=== PATIENT | male | born 1950 | race African-American/Black ===

== ENCOUNTER 2016-10-07 08:26 | Emergency (ER) | payer MEDICARE, MEDICAID ==
[~2016-10-07] VITALS: Ht 175.3 cm; Wt 80.0 kg
[~2016-10-07 08:26] MED LIST: BENZ2TAB7 PO; DIVA500T PO; DOCU-150 PO; FERR-43 PO; LEVO175T7 PO; LITH300T19 PO; QUET200T PO; RISP4 PO; SERT-112 PO; SULI200T4 PO; TOPI-60 PO
[2016-10-07 09:16] LABS: BASOPHILS % 0.3 % (0.0-2.0); DIFFERENTIAL COMMENT 0; EOSINOPHILS % 1.1 % (0.0-5.0); HEMOGLOBIN. 12.3 g/dL (14.0-18.0); LYMPHOCYTES % 24.8 % (20.0-50.0); MEAN CORPUSCULAR HEMOGLOBIN 33.6 pg (28.0-32.0); MEAN CORPUSCULAR HGB CONC 33.2 g/dL (31.0-37.0); MEAN CORPUSCULAR VOLUME 101.3 fL (80.0-94.0); MEAN PLATELET VOLUME 8.8 fl (7.4-10.4); MONOCYTES % 10.2 % (2.0-8.0); NEUTROPHILS % 63.6 % (40.0-76.0); PLATELET 97 x1000/uL (130-400); RED BLOOD CELL COUNT 3.65 mill/uL (4.7-6.1); RED CELL DISTRIBUTION WIDTH 13.7 % (11.6-14.6); WHITE BLOOD COUNT 7.1 x1000/uL (4.5-11.0)
[2016-10-07 09:20] LABS: INR 1.1; PROTHROMBIN TIME 11.3 sec
[2016-10-07 09:29] LABS: ANION GAP 11; CARBON DIOXIDE 29 mEq/L (21-32); CHLORIDE 105 mEq/L (98-107); INDEX HEMOLYSI 1 (1-3); INDEX ICTERIC 1 (1-4); INDEX LIPEMIC 1 (1-3); NT PRO B-TYPE NATRIURETIC PEP 85 pg/mL (5-125); TROPONIN I < 0.02 ng/mL (0.00-0.04); UREA NITROGEN BLOOD 14 mg/dL (7-21); eGFR > 60 mL/min (>60)
[2016-10-07 10:50] LABS: *AMPHETAMINES SCREEN URINE NEGATIVE (NEGATIVE); *BARBITURATES SCREEN URINE NEGATIVE (NEGATIVE); *BENZODIAZEPINES SCREEN URINE NEGATIVE (NEGATIVE); *COCAINE SCREEN URINE NEGATIVE (NEGATIVE); CANNABINOID URINE SCREEN NEGATIVE (NEGATIVE); ECSTASY MDMA SCREEN URINE NEGATIVE (NEGATIVE); METHADONE URINE SCREEN NEGATIVE (NEGATIVE); OPIATES URINE SCREEN NEGATIVE (NEGATIVE); PHENCYCLIDINE URINE SCREEN NEGATIVE (NEGATIVE)
[2016-10-07 11:05] VITALS: BP 148/86
== END 2016-10-07 11:59 | disposition home or self-care (01) ==
LOC: ER 08:38
DX: R55 Syncope and collapse (principal); R56.9 Unspecified convulsions; F20.9 Schizophrenia, unspecified; F31.9 Bipolar disorder, unspecified; Z79.899 Other long term (current) drug therapy; Z88.8 Allergy status to other drugs, medicaments and biological substances; W01.0XXA Fall on same level from slipping, tripping and stumbling without subsequent striking against object, initial encounter; Y93.89 Activity, other specified; Y99.8 Other external cause status; Y92.89 Other specified places as the place of occurrence of the external cause
CPT/HCPCS: 36415; 71010; 80048; 80165; 80178; 80305; 83880; 84484; 85025; 85610; 93005; 99285

== ENCOUNTER 2018-05-17 12:48 | Emergency (ER) | payer MEDICARE, MEDICAID ==
[~2018-05-17] VITALS: Ht 170.2 cm; Wt 77.0 kg
[~2018-05-17 12:48] MED LIST changes: +DIVA-75 PO; -DIVA500T PO; -LITH300T19 PO; +LITHBID PO; -TOPI-60 PO; +TOPI25TA48 PO
[2018-05-17] MEDS ORDERED: TETANUS, DIPHTHERIA, PERTUSSIS VAC/PF 0.5ML (>7YR OLD) IM ONE (13:45)
[2018-05-17] MEDS ORDERED: LIDOCAINE/EPINEPHR/TETRACAINE 3ML TP ONE (13:45)
[2018-05-17] MEDS ORDERED: LIDOCAINE 1%/EPI 1:100,000 10 ML VIAL IJ ONE (13:45)
[2018-05-17] MEDS ORDERED: BACITRACIN ZINC OINT UDPKT TOP ONE (13:45)
[2018-05-17 16:00] VITALS: BP 142/76
== END 2018-05-17 16:23 | disposition home or self-care (01) ==
LOC: ER 12:48
DX: S01.81XA Laceration without foreign body of other part of head, initial encounter (principal); W01.0XXA Fall on same level from slipping, tripping and stumbling without subsequent striking against object, initial encounter; Y93.89 Activity, other specified; Y92.89 Other specified places as the place of occurrence of the external cause; Y99.8 Other external cause status
CPT/HCPCS: 12001; 70450; 70486; 90471; 90715; 99284; J3490; 12011

== ENCOUNTER → 2019-02-28 | Outpatient (CLI) | payer MEDICARE, MEDICAID ==
[~2019-02-28] MED LIST changes: +DIVA500T3 PO; +LORA0.5T2 PO
== END | disposition home or self-care (01) ==
LOC: CARD 09:02
PROVIDERS: ATTEND Internal Medicine
DX: G40.919 Epilepsy, unspecified, intractable, without status epilepticus (principal)

== ENCOUNTER 2019-03-31 18:22 | Emergency (ER) | payer MEDICARE, MEDICAID ==
[~2019-03-31] VITALS: Ht 170.2 cm; Wt 75.0 kg
[~2019-03-31 18:22] MED LIST changes: -DIVA-75 PO; -QUET200T PO; -RISP4 PO
[2019-03-31] MEDS ORDERED: LORAZEPAM 1MG TABLET PO ONE (21:30)
[2019-03-31 22:43] VITALS: BP 139/64
[2019-03-31] MEDS ORDERED: DIPHENHYDRAMINE 25MG CAPSULE PO ONE (22:45)
[2019-03-31] MEDS ORDERED: IBUPROFEN 600MG TABLET PO ONE (22:45)
== END 2019-03-31 23:47 | disposition home or self-care (01) ==
LOC: ER 18:22
DX: M19.90 Unspecified osteoarthritis, unspecified site (principal); L30.9 Dermatitis, unspecified; F03.90 Unspecified dementia, unspecified severity, without behavioral disturbance, psychotic disturbance, mood disturbance, and anxiety; Z79.899 Other long term (current) drug therapy; Z88.8 Allergy status to other drugs, medicaments and biological substances; Z88.4 Allergy status to anesthetic agent
CPT/HCPCS: 99283

== ENCOUNTER 2019-04-09 01:47 | Inpatient (IN) | payer MEDICARE, MEDICAID ==
[~2019-04-09] VITALS: Ht 167.6 cm; Wt 78.0 kg
[2019-04-09] MEDS: IPRATROPIUM/ALBUTEROL 0.5-3(2.5)MG/3ML NEB HHN SCH (01:28)
[2019-04-09] MEDS ORDERED: LORAZEPAM 0.5MG TABLET PO ONE (04:00)
[2019-04-09] MEDS ORDERED: ACETAMINOPHEN 325MG TABLET PO ONE (04:00)
[2019-04-09] MEDS ORDERED: SODIUM CHLORIDE 0.9% 1,000 ML IV ONE (04:04)
[2019-04-09] MEDS ORDERED: PIPERACILLIN/TAZOBACTAM 3.375GM/50ML PREMIX IV SCH (04:15)
[2019-04-09] MEDS ORDERED: KETOROLAC 15MG/ML VIAL IV ONE (04:15)
[2019-04-09] MEDS ORDERED: VANCOMYCIN 1 G PREMIX 200 ML IV SCH (04:15)
[2019-04-09] MEDS ORDERED: TETANUS, DIPHTHERIA, PERTUSSIS VAC/PF 0.5ML (>7YR OLD) IM ONE (04:30)
[2019-04-09 04:34] LABS: BASOPHILS % 0.5 % (0.0-2.0); EOSINOPHILS % 3.5 % (0.0-5.0); HEMATOCRIT. 37.6 % (42.0-52.0); HEMOGLOBIN. 12.6 g/dL (14.0-18.0); LYMPHOCYTES % 27.1 % (20.0-50.0); MEAN CORPUSCULAR HEMOGLOBIN 31.4 pg (28.0-32.0); MEAN CORPUSCULAR VOLUME 94.1 fL (80.0-94.0); MEAN PLATELET VOLUME 8.1 fl (7.4-10.4); MONOCYTES % 10.2 % (2.0-8.0); NEUTROPHILS % 58.7 % (40.0-76.0); PLATELET 203 x1000/uL (130-400); RED CELL DISTRIBUTION WIDTH 14.9 % (11.6-14.6)
[2019-04-09 04:39] LABS: CHLORIDE 112 mEq/L (98-107)
[2019-04-09 08:00] VITALS: BP 150/64
[2019-04-09 08:30] VITALS: BP 150/64
[2019-04-09] MEDS ORDERED: HALOPERIDOL LACTATE 5MG/ML VIAL IM PRN (09:45)
[2019-04-09] MEDS ORDERED: LORAZEPAM 2MG/ML CPJ IV PRN (09:45)
[2019-04-09 12:00] VITALS: BP 174/78
[2019-04-09] MEDS ORDERED: HYDR12.529 MT (13:08)
[2019-04-09] MEDS ORDERED: IPRA3AMP9 NEB (13:08)
[2019-04-09] MEDS ORDERED: RISP2TAB22 MT (13:08)
[2019-04-09] MEDS ORDERED: TAMS-11 MT (13:08)
[2019-04-09] MEDS ORDERED: DOXY100C2 MT (13:08)
[2019-04-09] MEDS ORDERED: GABA-529 MT (13:08)
[2019-04-09] MEDS ORDERED: ECON1POW MC (13:08)
[2019-04-09] MEDS ORDERED: AMOX-494 MT (13:08)
[2019-04-09] MEDS ORDERED: CHOL200010 MT (13:08)
[2019-04-09] MEDS ORDERED: PROM50VI IJ (13:08)
[2019-04-09] MEDS ORDERED: QUET400T11 MT (13:08)
[2019-04-09] MEDS ORDERED: LORA1TAB MT (13:08)
[2019-04-09] MEDS ORDERED: MELO-106 MT (13:08)
[2019-04-09 16:00] VITALS: BP 126/69
[2019-04-09] MEDS ORDERED: IPRATROPIUM/ALBUTEROL 0.5-3(2.5)MG/3ML NEB HHN PRN ×2 (16:15→17:15)
[2019-04-09] MEDS ORDERED: CLONIDINE 0.1MG TABLET PO PRN (17:15)
[2019-04-09] MEDS ORDERED: DIPHENHYDRAMINE 50MG/ML VIAL IV PRN (17:15)
[2019-04-09] MEDS ORDERED: ONDANSETRON HCL 4MG/2ML INJ IV PRN (17:15)
[2019-04-09] MEDS ORDERED: MAGNESIUM/ALUMINUM HYDROXIDE/SIMETHICONE 30ML UDC PO PRN (17:15)
[2019-04-09] MEDS ORDERED: GUAIFENESIN 200MG/10ML SUGAR FREE UDC PO PRN (17:15)
[2019-04-09] MEDS ORDERED: TETRACYCLINE HCL 250MG CAPSULE PO SCH (18:00)
[2019-04-09] MEDS ORDERED: ENOXAPARIN 40MG/0.4ML SYR SUBCUT SCH (20:00)
[2019-04-09] MEDS ORDERED: FLUCONAZOLE 400MG/200ML BAG 200 ML IV SCH (20:00)
[2019-04-09] MEDS ORDERED: PROMETHAZINE/DEXTROMETHORPHAN 6.25-15MG/5ML BOTTLE 120ML PO PRN (20:30)
[2019-04-09] MEDS: ACETAMINOPHEN 325MG TABLET PO PRN (20:44)
[2019-04-09] MEDS: GUAIFENESIN 600MG ER TABLET PO SCH (20:45)
[2019-04-09] MEDS: DIVALPROEX SODIUM 250MG DR TABLET PO SCH (20:45)
[2019-04-09] MEDS: CLOTRIMAZOLE/BETAMETHASONE 1/0.05% CREAM 15GM TOP SCH (20:46)
[2019-04-09] MEDS ORDERED: RISPERIDONE 1MG TABLET PO SCH (21:00)
[2019-04-09 21:14] VITALS: BP 128/57
[2019-04-09] MEDS: SODIUM CHLORIDE 0.9% INJ 3ML FLUSH IVF SCH (22:35)
[2019-04-09] MEDS: GABAPENTIN 100MG CAPSULE PO SCH (22:36)
[2019-04-09] MEDS: LORAZEPAM 1MG TABLET PO PRN (22:36)
[2019-04-10] VITALS: BP 120/58
[2019-04-10] MEDS: ACETAMINOPHEN 325MG TABLET PO PRN (02:20)
[2019-04-10 04:00] VITALS: BP 143/65
[2019-04-10] MEDS: SODIUM CHLORIDE 0.9% INJ 3ML FLUSH IVF SCH ×2 (06:30→14:00)
[2019-04-10] MEDS: GABAPENTIN 100MG CAPSULE PO SCH ×2 (06:30→14:30)
[2019-04-10] MEDS ORDERED: LEVOTHYROXINE SODIUM 75MCG TABLET PO SCH (07:20)
[2019-04-10 08:00] VITALS: BP 140/62
[2019-04-10] MEDS: GUAIFENESIN 600MG ER TABLET PO SCH (08:38)
[2019-04-10] MEDS: DIVALPROEX SODIUM 250MG DR TABLET PO SCH (08:38)
[2019-04-10] MEDS: CLOTRIMAZOLE/BETAMETHASONE 1/0.05% CREAM 15GM TOP SCH (08:39)
[2019-04-10] MEDS ORDERED: TOPIRAMATE 25MG TABLET PO SCH (09:00)
[2019-04-10] MEDS ORDERED: TAMSULOSIN HCL 0.4MG SR CAPSULE PO SCH (09:00)
[2019-04-10] MEDS ORDERED: LITHIUM CARBONATE 150 MG CAPSULE PO SCH (09:00)
[2019-04-10] MEDS: IPRATROPIUM/ALBUTEROL 0.5-3(2.5)MG/3ML NEB HHN SCH ×2 (10:24→17:17)
[2019-04-10] MEDS ORDERED: FLUCONAZOLE 400MG/200ML PREMIX IV SCH (11:00)
[2019-04-10 12:00] VITALS: BP 140/64
[2019-04-10] MEDS: LORAZEPAM 1MG TABLET PO PRN (12:08)
[2019-04-10 18:26] VITALS: BP 140/64
== END 2019-04-10 20:48 | disposition home or self-care (01) | DRG 383 ==
LOC: ER 01:47 → EDBEDREQ 05:22 → EDBEDREQTM 05:22 → EDBEDREQ 05:29 → ENRESERV 07:08 → 6EST 08:35
PROVIDERS: ADMIT Internal Medicine; ATTEND Internal Medicine
DX: L03.312 Cellulitis of back [any part except buttock and flank] (principal); F03.90 Unspecified dementia, unspecified severity, without behavioral disturbance, psychotic disturbance, mood disturbance, and anxiety; G40.909 Epilepsy, unspecified, not intractable, without status epilepticus; J44.9 Chronic obstructive pulmonary disease, unspecified; E03.9 Hypothyroidism, unspecified; L30.8 Other specified dermatitis; M19.90 Unspecified osteoarthritis, unspecified site; N40.0 Benign prostatic hyperplasia without lower urinary tract symptoms; Z72.0 Tobacco use; Z88.9 Allergy status to unspecified drugs, medicaments and biological substances
CPT/HCPCS: 36415; 71045; 83605; 87070; 87077; 90715; 94640; 99285; C1893; J1200; J1450; J1650; J1885; J2060; J2543; J3370; J7030; J7040; J7620

== ENCOUNTER 2019-04-13 19:18 | Emergency (ER) | payer MEDICARE, MEDICAID ==
[~2019-04-13] VITALS: Ht 172.7 cm; Wt 82.0 kg
[~2019-04-13 19:18] MED LIST changes: +AMOX-494 MT; +CHOL200010 MT; +DOXY100C2 MT; +ECON1POW MC; +GABA-529 MT; +HYDR12.529 MT; +IPRA3AMP9 NEB; +LORA1TAB MT; +MELO-106 MT; +PROM50VI IJ; +QUET400T11 MT; +RISP2TAB22 MT; +TAMS-11 MT
[2019-04-13] MEDS ORDERED: IBUPROFEN 600MG TABLET PO STA (19:44)
[2019-04-13 20:34] LABS: BASOPHILS % 0.6 % (0.0-2.0); CHLORIDE 106 mEq/L (98-107); EOSINOPHILS % 3.5 % (0.0-5.0); HEMATOCRIT. 38.5 % (42.0-52.0); HEMOGLOBIN. 12.7 g/dL (14.0-18.0); LYMPHOCYTES % 21.8 % (20.0-50.0); MEAN CORPUSCULAR HEMOGLOBIN 31.3 pg (28.0-32.0); MEAN CORPUSCULAR VOLUME 94.6 fL (80.0-94.0); MEAN PLATELET VOLUME 8.5 fl (7.4-10.4); MONOCYTES % 7.3 % (2.0-8.0); NEUTROPHILS % 66.8 % (40.0-76.0); PLATELET 210 x1000/uL (130-400); RED BLOOD CELL COUNT 4.07 mill/uL (4.7-6.1); RED CELL DISTRIBUTION WIDTH 14.7 % (11.6-14.6)
[2019-04-13 22:08] LABS: CLARITY URINE CLEAR (CLEAR); COLOR URINE YELLOW (YELLOW); KETONES URINE NEGATIVE (NEGATIVE); LEUKOCYTE ESTERASE URINE NEGATIVE (NEGATIVE); NITRITE URINE NEGATIVE (NEGATIVE); OCCULT BLOOD URINE NEGATIVE (NEGATIVE); PROTEIN URINE NEGATIVE (NEGATIVE); UROBILINOGEN URINE 0.2 E.U./dL (0.2-1.0)
[2019-04-14 02:00] VITALS: BP 95/67
== END 2019-04-14 02:18 | disposition home or self-care (01) ==
LOC: ER 19:18
DX: M79.18 Myalgia, other site (principal); R53.1 Weakness; R42 Dizziness and giddiness; Z79.899 Other long term (current) drug therapy; Z88.8 Allergy status to other drugs, medicaments and biological substances; Z88.4 Allergy status to anesthetic agent
CPT/HCPCS: 36415; 71045; 81003; 93005; 99284

== ENCOUNTER 2019-09-01 07:35 | Emergency (ER) | payer MEDICARE, MEDICAID ==
[~2019-09-01] VITALS: Ht 172.7 cm; Wt 73.0 kg
[~2019-09-01 07:35] MED LIST changes: -AMOX-494 MT
[2019-09-01 13:06] LABS: BASOPHILS % 0.7 % (0.0-2.0); EOSINOPHILS % 2.6 % (0.0-5.0); HEMATOCRIT. 39.2 % (42.0-52.0); HEMOGLOBIN. 13.1 g/dL (14.0-18.0); LYMPHOCYTES % 30.3 % (20.0-50.0); MEAN CORPUSCULAR VOLUME 89.9 fL (80.0-94.0); MEAN PLATELET VOLUME 8.6 fl (7.4-10.4); MONOCYTES % 7.2 % (2.0-8.0); NEUTROPHILS % 59.2 % (40.0-76.0); PLATELET 116 x1000/uL (130-400); RED BLOOD CELL COUNT 4.36 mill/uL (4.7-6.1); RED CELL DISTRIBUTION WIDTH 15.5 % (11.6-14.6)
[2019-09-01 13:18] LABS: CHLORIDE 109 mEq/L (98-107)
[2019-09-01 13:21] LABS: ETHANOL BLOOD < 10 mg/dL
[2019-09-01 15:40] LABS: CLARITY URINE CLEAR (CLEAR); COLOR URINE YELLOW (YELLOW); KETONES URINE NEGATIVE (NEGATIVE); LEUKOCYTE ESTERASE URINE NEGATIVE (NEGATIVE); NITRITE URINE NEGATIVE (NEGATIVE); OCCULT BLOOD URINE NEGATIVE (NEGATIVE); PH URINE 6.5 (4.5-8.0); PROTEIN URINE NEGATIVE (NEGATIVE); SPECIFIC GRAVITY URINE 1.012 (1.005-1.030); UROBILINOGEN URINE 0.2 E.U./dL (0.2-1.0)
[2019-09-01 15:52] LABS: *AMPHETAMINES SCREEN URINE NEGATIVE (NEGATIVE); *BARBITURATES SCREEN URINE NEGATIVE (NEGATIVE); *BENZODIAZEPINES SCREEN URINE NEGATIVE (NEGATIVE); *COCAINE SCREEN URINE NEGATIVE (NEGATIVE)
[2019-09-01 15:53] LABS: CANNABINOID URINE SCREEN NEGATIVE (NEGATIVE); METHADONE URINE SCREEN NEGATIVE (NEGATIVE); OPIATES URINE SCREEN NEGATIVE (NEGATIVE); PHENCYCLIDINE URINE SCREEN NEGATIVE (NEGATIVE)
[2019-09-03] MEDS: ACETAMINOPHEN 325MG TABLET PO ONE (09:00)
[2019-09-03 10:21] VITALS: BP 151/71
== END 2019-09-03 10:26 | disposition home or self-care (01) ==
LOC: ER 07:51
DX: F43.20 Adjustment disorder, unspecified (principal); Z59.0 Homelessness; F31.9 Bipolar disorder, unspecified; E03.9 Hypothyroidism, unspecified; F20.9 Schizophrenia, unspecified; Z79.899 Other long term (current) drug therapy; Z88.4 Allergy status to anesthetic agent; Z88.8 Allergy status to other drugs, medicaments and biological substances
CPT/HCPCS: 36415; 80048; 80305; 80307; 80320; 80329; 81003; 85025; 99285; G0480

== ENCOUNTER 2022-08-29 00:47 | Inpatient (IN) | payer MEDICARE, MEDICAID ==
[~2022-08-29] VITALS: Ht 175.3 cm; Wt 89.8 kg
[~2022-08-29 00:47] MED LIST changes: -DOXY100C2 MT; +DOXY100C5 MT; +PHEN100C4 PO; -QUET400T11 MT; +QUET400T12 MT; -RISP2TAB22 MT; +RISP2TAB85 MT
[2022-08-29 02:12] LABS: BASOPHILS % 0.3 % (0.0-2.0); EOSINOPHILS % 0.7 % (0.0-5.0); HEMATOCRIT. 34.7 % (42.0-52.0); HEMOGLOBIN. 11.6 g/dL (14.0-18.0); LYMPHOCYTES % 17.7 % (20.0-50.0); MEAN CORPUSCULAR HEMOGLOBIN 32.2 pg (28.0-32.0); MEAN CORPUSCULAR VOLUME 96.1 fL (80.0-94.0); MEAN PLATELET VOLUME 9.1 fl (7.4-10.4); MONOCYTES % 6.5 % (2.0-8.0); NEUTROPHILS % 74.8 % (40.0-76.0); PLATELET 141 x1000/uL (130-400); RED BLOOD CELL COUNT 3.61 mill/uL (4.7-6.1)
[2022-08-29 02:13] LABS: CHLORIDE 104 mEq/L (98-107)
[2022-08-29 02:15] LABS: CLARITY URINE CLEAR (CLEAR); COLOR URINE YELLOW (YELLOW); KETONES URINE NEGATIVE (NEGATIVE); LEUKOCYTE ESTERASE URINE NEGATIVE (NEGATIVE); NITRITE URINE NEGATIVE (NEGATIVE); OCCULT BLOOD URINE NEGATIVE (NEGATIVE); PH URINE 5.5 (4.5-8.0); PROTEIN URINE NEGATIVE (NEGATIVE); SPECIFIC GRAVITY URINE 1.014 (1.005-1.030); UROBILINOGEN URINE 0.2 E.U./dL (0.2-1.0)
[2022-08-29 02:21] LABS: ETHANOL BLOOD < 10 mg/dL
[2022-08-29 02:27] LABS: *AMPHETAMINES SCREEN URINE NEGATIVE (NEGATIVE); *BARBITURATES SCREEN URINE NEGATIVE (NEGATIVE); *BENZODIAZEPINES SCREEN URINE NEGATIVE (NEGATIVE); *COCAINE SCREEN URINE NEGATIVE (NEGATIVE); CANNABINOID URINE SCREEN NEGATIVE (NEGATIVE); METHADONE URINE SCREEN NEGATIVE (NEGATIVE); OPIATES URINE SCREEN NEGATIVE (NEGATIVE); PHENCYCLIDINE URINE SCREEN NEGATIVE (NEGATIVE)
[2022-08-29] MEDS ORDERED: SODIUM CHLORIDE 0.9% 1,000 ML IV ONE (04:30)
[2022-08-29] MEDS ORDERED: ZOLPIDEM TARTRATE 5MG TABLET PO PRN (08:00)
[2022-08-29] MEDS ORDERED: IPRATROPIUM/ALBUTEROL 0.5-3(2.5)MG/3ML NEB NEB PRN (08:00)
[2022-08-29] MEDS ORDERED: NITROGLYCERIN 0.4MG TABLET SL SL PRN (08:00)
[2022-08-29] MEDS ORDERED: GUAIFENESIN 200MG/10ML SUGAR FREE UDC PO PRN (08:00)
[2022-08-29] MEDS ORDERED: ENOXAPARIN 40MG/0.4ML SYR SUBCUT SCH (08:00)
[2022-08-29] MEDS ORDERED: ACETAMINOPHEN 325MG TABLET PO PRN (08:00)
[2022-08-29] MEDS ORDERED: ONDANSETRON HCL 4MG/2ML INJ IV PRN (08:00)
[2022-08-29] MEDS ORDERED: DOCUSATE SODIUM 100MG CAPSULE PO PRN (08:00)
[2022-08-29] MEDS ORDERED: LORAZEPAM 0.5MG TABLET PO PRN (08:00)
[2022-08-29] MEDS ORDERED: CLONIDINE 0.1MG TABLET PO PRN (08:00)
[2022-08-29] MEDS ORDERED: FAMOTIDINE 20MG TABLET PO SCH (09:00)
[2022-08-29 09:02] LABS: VITAMIN B12 SERUM 939 pg/mL (211-911)
[2022-08-29 09:28] LABS: CREATINE KINASE 355 IU/L (39-308); CREATINE KINASE MB FRACTION 4.2 ng/mL (0.5-3.6); T4 FREE 0.81 ng/dL (0.76-1.46); TOTAL IRON BINDING CAPACITY 230 ug/dL (250-450)
[2022-08-29 09:30] LABS: FOLIC ACID (FOLATE) SERUM > 20.00 ng/mL (>5.38)
[2022-08-29] MEDS: ASPIRIN 325MG EC TABLET PO SCH (09:40)
[2022-08-29] MEDS: DIVALPROEX SODIUM 500MG DR TABLET PO SCH ×2 (09:40→22:40)
[2022-08-29] MEDS: LEVOTHYROXINE SODIUM 112MCG TABLET PO SCH (09:40)
[2022-08-29] MEDS: ENOXAPARIN 30MG/0.3ML SYR SUBCUT SCH (09:40)
[2022-08-29] MEDS: FAMOTIDINE 20MG TABLET PO SCH (09:40)
[2022-08-29] MEDS: SODIUM CHLORIDE 0.9% 1,000 ML IV SCH ×2 (09:40→18:02)
[2022-08-29] MEDS: RISPERIDONE 1MG TABLET PO SCH ×2 (09:40→22:40)
[2022-08-29] MEDS: ACETAMINOPHEN 325MG TABLET PO PRN (22:41)
[2022-08-30] VITALS: BP 121/68
[2022-08-30 01:00] VITALS: BP 126/68
[2022-08-30] MEDS: ACETAMINOPHEN 325MG TABLET PO PRN ×2 (03:00→10:05)
[2022-08-30] MEDS: SODIUM CHLORIDE 0.9% 1,000 ML IV SCH ×2 (03:47→13:22)
[2022-08-30 04:00] VITALS: BP 126/88
[2022-08-30 05:20] LABS: CHLORIDE 106 mEq/L (98-107)
[2022-08-30 05:29] LABS: PHOSPHORUS 2.1 mg/dL (2.5-4.9)
[2022-08-30 06:04] LABS: BASOPHILS % 0.4 % (0.0-2.0); EOSINOPHILS % 1.9 % (0.0-5.0); HEMATOCRIT. 31.4 % (42.0-52.0); HEMOGLOBIN. 10.6 g/dL (14.0-18.0); LYMPHOCYTES % 36.7 % (20.0-50.0); MEAN CORPUSCULAR HEMOGLOBIN 32.3 pg (28.0-32.0); MEAN CORPUSCULAR VOLUME 95.9 fL (80.0-94.0); MEAN PLATELET VOLUME 8.9 fl (7.4-10.4); MONOCYTES % 8.2 % (2.0-8.0); NEUTROPHILS % 52.8 % (40.0-76.0); PLATELET 132 x1000/uL (130-400); RED BLOOD CELL COUNT 3.27 mill/uL (4.7-6.1); RED CELL DISTRIBUTION WIDTH 15.6 % (11.6-14.6)
[2022-08-30] MEDS: LEVOTHYROXINE SODIUM 112MCG TABLET PO SCH (06:32)
[2022-08-30 08:00] VITALS: BP 120/66
[2022-08-30] MEDS: HALOPERIDOL LACTATE 5MG/ML VIAL IM PRN (09:41)
[2022-08-30] MEDS: DIVALPROEX SODIUM 500MG DR TABLET PO SCH ×2 (10:00→20:15)
[2022-08-30] MEDS: RISPERIDONE 1MG TABLET PO SCH ×2 (10:01→20:15)
[2022-08-30] MEDS: FAMOTIDINE 20MG TABLET PO SCH (10:01)
[2022-08-30] MEDS: ASPIRIN 325MG EC TABLET PO SCH (10:01)
[2022-08-30] MEDS: MAGNESIUM/ALUMINUM HYDROXIDE/SIMETHICONE 30ML UDC PO PRN (10:04)
[2022-08-30] MEDS: ENOXAPARIN 30MG/0.3ML SYR SUBCUT SCH (13:18)
[2022-08-30] MEDS: NICOTINE 21MG PATCH TD SCH (13:19)
[2022-08-30] MEDS: KETOROLAC 15MG/ML VIAL IV PRN ×2 (13:20→20:21)
[2022-08-30 16:00] VITALS: BP 118/55
[2022-08-30 20:00] VITALS: BP 122/60
[2022-08-31] VITALS: BP 120/63
[2022-08-31] MEDS: SODIUM CHLORIDE 0.9% 1,000 ML IV SCH ×2 (01:29→09:19)
[2022-08-31 04:00] VITALS: BP 120/66
[2022-08-31 07:38] VITALS: BP 103/57
[2022-08-31] MEDS: HALOPERIDOL LACTATE 5MG/ML VIAL IM PRN (08:25)
[2022-08-31] MEDS ORDERED: ENOXAPARIN 40MG/0.4ML SYR SUBCUT SCH (09:00)
[2022-08-31] MEDS: DIVALPROEX SODIUM 500MG DR TABLET PO SCH (09:18)
[2022-08-31] MEDS: ASPIRIN 325MG EC TABLET PO SCH (09:18)
[2022-08-31] MEDS: LEVOTHYROXINE SODIUM 112MCG TABLET PO SCH (09:18)
[2022-08-31] MEDS: RISPERIDONE 1MG TABLET PO SCH (09:18)
[2022-08-31] MEDS: NICOTINE 21MG PATCH TD SCH (09:19)
[2022-08-31] MEDS: KETOROLAC 15MG/ML VIAL IV PRN (09:21)
[2022-08-31] MEDS: MAGNESIUM/ALUMINUM HYDROXIDE/SIMETHICONE 30ML UDC PO PRN (09:22)
[2022-08-31] MEDS: FAMOTIDINE 20MG TABLET PO SCH (09:24)
[2022-08-31 12:00] VITALS: BP 134/58
[2022-08-31 14:38] VITALS: BP 134/58
== END 2022-08-31 15:43 | disposition home or self-care (01) | DRG 351 ==
LOC: ER 00:47 → 6EST 06:13 → EDBEDREQSVC 06:16 → EDBEDREQ 06:16 → EDBEDREQTM 06:16 → EDBEDREQ 09:01
PROVIDERS: ADMIT Internal Medicine; ATTEND Internal Medicine
DX: M62.82 Rhabdomyolysis (principal); N17.0 Acute kidney failure with tubular necrosis; E44.1 Mild protein-calorie malnutrition; F25.9 Schizoaffective disorder, unspecified; G40.909 Epilepsy, unspecified, not intractable, without status epilepticus; J44.9 Chronic obstructive pulmonary disease, unspecified; E03.9 Hypothyroidism, unspecified; I10 Essential (primary) hypertension; R45.850 Homicidal ideations; N40.0 Benign prostatic hyperplasia without lower urinary tract symptoms; Z20.822 Contact with and (suspected) exposure to COVID-19; F17.210 Nicotine dependence, cigarettes, uncomplicated; Z91.14 Patient's other noncompliance with medication regimen; Z68.29 Body mass index [BMI] 29.0-29.9, adult; Z59.00 Homelessness unspecified; Z88.8 Allergy status to other drugs, medicaments and biological substances
CPT/HCPCS: 36415; 71045; 74176; 76700; 80053; 80185; 80305; 80320; 81003; 82550; 82553; 82607; 82746; 82962; 83540; 83550; 83735; 84100; 84439; 84443; 84484; 85025; 87426; 93970; 99285; C9803; J1650; J1885; G0480

== ENCOUNTER 2023-05-09 06:45 | Emergency (ER) | payer MEDICARE, MEDICAID ==
[~2023-05-09] VITALS: Ht 177.8 cm; Wt 77.0 kg
[~2023-05-09 06:45] MED LIST changes: +BENZ2TAB65 PO; -BENZ2TAB7 PO
[2023-05-09 06:54] VITALS: BP 146/71; PULSE 76; RESP 17; TEMP 98.7; O2SAT 100
[2023-05-09] MEDS ORDERED: IBUP-2029 MT (10:38)
== END 2023-05-09 16:08 | disposition home or self-care (01) ==
LOC: ER 06:45
DX: G89.29 Other chronic pain (principal); M79.605 Pain in left leg; M79.604 Pain in right leg; Z59.00 Homelessness unspecified; I10 Essential (primary) hypertension; Z79.899 Other long term (current) drug therapy; Z88.8 Allergy status to other drugs, medicaments and biological substances
CPT/HCPCS: 71045; 99283

== ENCOUNTER 2023-05-21 19:40 | Emergency (ER) | payer MEDICARE, MEDICAID ==
[~2023-05-21] VITALS: Ht 170.2 cm; Wt 75.0 kg
[~2023-05-21 19:40] MED LIST changes: +IBUP-2029 MT
[2023-05-21 19:47] VITALS: O2SAT 98
[2023-05-21] MEDS ORDERED: SODIUM CHLORIDE 0.9% 1,000 ML IV ONE (22:30)
[2023-05-21 22:49] LABS: BASOPHILS % 0.8 % (0.0-2.0); EOSINOPHILS % 0.9 % (0.0-5.0); HEMATOCRIT. 41.1 % (42.0-52.0); HEMOGLOBIN. 13.4 g/dL (14.0-18.0); MEAN CORPUSCULAR HEMOGLOBIN 31.4 pg (28.0-32.0); MEAN CORPUSCULAR HGB CONC 32.6 g/dL (31.0-37.0); MEAN CORPUSCULAR VOLUME 96.3 fL (80.0-94.0); MEAN PLATELET VOLUME 9.1 fl (7.4-10.4); MONOCYTES % 6.2 % (2.0-8.0); NEUTROPHILS % 60.1 % (40.0-76.0); PLATELET 152 x1000/uL (130-400); RED BLOOD CELL COUNT 4.27 mill/uL (4.7-6.1); RED CELL DISTRIBUTION WIDTH 15.2 % (11.6-14.6); WHITE BLOOD COUNT 9.4 x1000/uL (4.5-11.0)
[2023-05-21 22:57] LABS: CHLORIDE 107 mEq/L (98-107); INDEX HEMOLYSI 1 (1-3); INDEX ICTERIC 1 (1-4); INDEX LIPEMIC 1 (1-3); POTASSIUM 4.6 mEq/L (3.5-5.1); SODIUM 138 mEq/L (136-145)
[2023-05-21 23:00] LABS: AMMONIA 26 uMol/L (<32)
[2023-05-21 23:06] LABS: LACTIC ACID 2.6 mmol/L (0.4-2.0)
[2023-05-21 23:14] LABS: ACETAMINOPHEN <2 ug/mL ug/mL (10-30); ALANINE AMINOTRANSFERASE 19 IU/L (13-61); ALBUMIN 3.6 g/dL (3.4-5.0); ASPARTATE AMINOTRANSFERASE 21 IU/L (15-37); BILIRUBIN TOTAL 0.3 mg/dL (0.1-1.0); CALCIUM 9.4 mg/dL (8.5-10.1); CARBON DIOXIDE 29 mEq/L (21-32); CREATININE 1.2 mg/dL (0.6-1.3); ETHANOL BLOOD < 10 mg/dL (<10); GLUCOSE 79 mg/dL (70-105); PROTEIN TOTAL 8.2 g/dL (6.0-8.3); THYROID STIMULATING HORMONE 0.98 uIU/mL (0.36-3.74); UREA NITROGEN BLOOD 22 mg/dL (7-21)
[2023-05-22] MEDS ORDERED: SODIUM CHLORIDE 0.9% 1,000 ML IV ONE ×2 (00:30→01:15)
[2023-05-22 01:45] LABS: LACTIC ACID 2.2 mmol/L (0.4-2.0)
[2023-05-22 05:31] LABS: *AMPHETAMINES SCREEN URINE NEGATIVE (NEGATIVE); *BARBITURATES SCREEN URINE NEGATIVE (NEGATIVE); *BENZODIAZEPINES SCREEN URINE NEGATIVE (NEGATIVE); *COCAINE SCREEN URINE NEGATIVE (NEGATIVE); CANNABINOID URINE SCREEN PRESUMTIVE POSITIVE (NEGATIVE); ECSTASY MDMA SCREEN URINE NEGATIVE (NEGATIVE); METHADONE URINE SCREEN NEGATIVE (NEGATIVE); OPIATES URINE SCREEN NEGATIVE (NEGATIVE); PHENCYCLIDINE URINE SCREEN NEGATIVE (NEGATIVE)
[2023-05-22 05:51] LABS: CLARITY URINE CLEAR (CLEAR); COLOR URINE YELLOW (YELLOW); PH URINE 5.5 (4.5-8.0); PROTEIN URINE NEGATIVE (NEGATIVE); SPECIFIC GRAVITY URINE 1.014 (1.005-1.030)
[2023-05-22 05:52] LABS: GLUCOSE URINE NEGATIVE (NEGATIVE); KETONES URINE NEGATIVE (NEGATIVE); LEUKOCYTE ESTERASE URINE NEGATIVE (NEGATIVE); NITRITE URINE NEGATIVE (NEGATIVE); OCCULT BLOOD URINE NEGATIVE (NEGATIVE)
[2023-05-22 18:33] VITALS: BP 120/56; PULSE 82; RESP 12; TEMP 98.2
== END 2023-05-22 19:56 | disposition home or self-care (01) ==
LOC: ER 19:40
DX: R44.0 Auditory hallucinations (principal); I10 Essential (primary) hypertension; Z88.4 Allergy status to anesthetic agent; Z88.8 Allergy status to other drugs, medicaments and biological substances; Z79.899 Other long term (current) drug therapy; Z86.59 Personal history of other mental and behavioral disorders; Z98.890 Other specified postprocedural states
CPT/HCPCS: 80053; 80307; 80329; 80320; 82140; 83605 ×2; 83690; 84443; 85025; 86850; 86900; 86901; 36415; 71045; 93005; 99285; 80305; 81003; 70450; 96360; J7030; Z7610 ×2; C1893; G0480

== ENCOUNTER 2023-06-08 16:29 | Emergency (ER) | payer MEDICARE, MEDICAID ==
[~2023-06-08] VITALS: Ht 172.7 cm; Wt 77.0 kg
[2023-06-08] MEDS ORDERED: ALBUTEROL (0.083%) 2.5MG/3ML NEB HHN STA (17:37)
[2023-06-08] MEDS ORDERED: IPRATROPIUM BROMIDE (0.02%) 0.5MG/2.5ML NEB HHN STA (17:37)
[2023-06-08] MEDS ORDERED: SODIUM CHLORIDE 0.9% 1,000 ML IV ONE (17:45)
[2023-06-08 17:50] VITALS: PULSE 71; RESP 18; O2SAT 94
[2023-06-08 18:25] LABS: BASOPHILS % 0.9 % (0.0-2.0); EOSINOPHILS % 0.5 % (0.0-5.0); HEMATOCRIT. 37.2 % (42.0-52.0); HEMOGLOBIN. 12.8 g/dL (14.0-18.0); LYMPHOCYTES % 23.8 % (20.0-50.0); MEAN CORPUSCULAR HEMOGLOBIN 32.5 pg (28.0-32.0); MEAN CORPUSCULAR HGB CONC 34.4 g/dL (31.0-37.0); MEAN CORPUSCULAR VOLUME 94.5 fL (80.0-94.0); MEAN PLATELET VOLUME 9.2 fl (7.4-10.4); NEUTROPHILS % 67.8 % (40.0-76.0); PLATELET 132 x1000/uL (130-400); RED BLOOD CELL COUNT 3.93 mill/uL (4.7-6.1); RED CELL DISTRIBUTION WIDTH 14.7 % (11.6-14.6); WHITE BLOOD COUNT 8.5 x1000/uL (4.5-11.0)
[2023-06-08 18:45] LABS: ACETAMINOPHEN < 2 ug/mL (10-30); ALANINE AMINOTRANSFERASE 15 IU/L (10-49); ALBUMIN 4.2 g/dL (3.2-4.8); ASPARTATE AMINOTRANSFERASE 25 IU/L (<34); BILIRUBIN TOTAL 0.5 mg/dL (0.1-1.0); CALCIUM 9.6 mg/dL (8.7-10.4); CARBON DIOXIDE 28 mEq/L (21-32); CHLORIDE 110 mEq/L (98-107); GLUCOSE 92 mg/dL (70-105); POTASSIUM 4.2 mEq/L (3.5-5.1); PROTEIN TOTAL 7.4 g/dL (6.0-8.3); SODIUM 143 mEq/L (136-145); THYROID STIMULATING HORMONE 1.73 uIU/mL (0.55-4.78); TROPONIN I HIGH SENSITIVITY 7 ng/L (3.0-53); UREA NITROGEN BLOOD 12 mg/dL (9-23)
[2023-06-08 19:07] LABS: ETHANOL BLOOD < 10 mg/dL (<10); PHENYTOIN < 2.0 ug/mL (10-20); VALPROIC ACID < 3.0 ug/mL (50-100)
[2023-06-08 19:19] LABS: CLARITY URINE CLEAR (CLEAR); COLOR URINE YELLOW (YELLOW); GLUCOSE URINE NEGATIVE (NEGATIVE); KETONES URINE NEGATIVE (NEGATIVE); LEUKOCYTE ESTERASE URINE TRACE (NEGATIVE); NITRITE URINE NEGATIVE (NEGATIVE); OCCULT BLOOD URINE NEGATIVE (NEGATIVE); PH URINE 7.5 (4.5-8.0); PROTEIN URINE TRACE (NEGATIVE); SPECIFIC GRAVITY URINE 1.018 (1.005-1.030)
[2023-06-08 19:22] LABS: BACTERIA URINE NONE SEEN; SQUAMOUS EPITHELIAL CELL URINE NONE SEEN /lpf (RARE/1+); WBC URINE 0-2 /hpf (0-2); YEAST URINE NONE SEEN
[2023-06-08 19:38] LABS: *AMPHETAMINES SCREEN URINE NEGATIVE (NEGATIVE); *BARBITURATES SCREEN URINE NEGATIVE (NEGATIVE); *BENZODIAZEPINES SCREEN URINE NEGATIVE (NEGATIVE); *COCAINE SCREEN URINE NEGATIVE (NEGATIVE); CANNABINOID URINE SCREEN PRESUMPTIVE POSITIVE (NEGATIVE); METHADONE URINE SCREEN Neg (NEGATIVE); OPIATES URINE SCREEN NEGATIVE (NEGATIVE); PHENCYCLIDINE URINE SCREEN NEGATIVE (NEGATIVE)
[2023-06-09] MEDS ORDERED: QUETIAPINE FUMARATE 25MG TABLET PO SCH (09:45)
[2023-06-09] MEDS ORDERED: ACETAMINOPHEN 325MG TABLET PO ONE (10:00)
[2023-06-09 19:57] VITALS: BP 110/80; PULSE 65; RESP 14; TEMP 98
== END 2023-06-09 20:56 ==
LOC: ER 16:29
DX: G40.909 Epilepsy, unspecified, not intractable, without status epilepticus (principal); F31.9 Bipolar disorder, unspecified; I10 Essential (primary) hypertension; F20.9 Schizophrenia, unspecified; F19.90 Other psychoactive substance use, unspecified, uncomplicated; Z79.899 Other long term (current) drug therapy
CPT/HCPCS: 80053; 80305; 81003; 80307; 80329; 80320; 80185; 84443; 80165; 85025; 84484; 36415; 71045; 70450; 93005; 99285; 87426; J7030; C9803; G0480

== ENCOUNTER 2023-07-12 18:38 | Emergency (ER) | payer MEDICARE, MEDICAID ==
[~2023-07-12] VITALS: Ht 165.1 cm; Wt 60.0 kg
[~2023-07-12 18:38] MED LIST changes: +ASPI-1406 PO; +ATOR20TA65 PO; -BENZ2TAB65 PO; -CHOL200010 MT; -DIVA500T3 PO; -DOCU-150 PO; -DOXY100C5 MT; -ECON1POW MC; -FERR-43 PO; +FERR325T30 PO; -GABA-529 MT; -HYDR12.529 MT; -IBUP-2029 MT; -IPRA3AMP9 NEB; -LEVO175T7 PO; -LITHBID PO; -LORA0.5T2 PO; -LORA1TAB MT; -MELO-106 MT; +NALT50TA5 PO; -PHEN100C4 PO; -PROM50VI IJ; +QUET100T34 PO; +QUET200T4 PO; -RISP2TAB85 MT; -SERT-112 PO; -SULI200T4 PO; -TAMS-11 MT; -TOPI25TA48 PO; +VITA1TAB20 PO; +[UNRECOGNIZED DRUG - OTHER]
[2023-07-12 18:48] VITALS: BP 166/90; PULSE 81; RESP 16; TEMP 98.2; O2SAT 98
[2023-07-12] MEDS ORDERED: ACETAMINOPHEN 325MG TABLET PO STA (18:50)
== END 2023-07-12 19:49 | disposition home or self-care (01) ==
LOC: ER 18:38
DX: G40.909 Epilepsy, unspecified, not intractable, without status epilepticus (principal); N40.0 Benign prostatic hyperplasia without lower urinary tract symptoms; E03.9 Hypothyroidism, unspecified; N18.9 Chronic kidney disease, unspecified; F31.9 Bipolar disorder, unspecified; F20.9 Schizophrenia, unspecified; F19.90 Other psychoactive substance use, unspecified, uncomplicated; Z98.890 Other specified postprocedural states; Z88.5 Allergy status to narcotic agent; Z88.8 Allergy status to other drugs, medicaments and biological substances; R07.9 Chest pain, unspecified; I12.0 Hypertensive chronic kidney disease with stage 5 chronic kidney disease or end stage renal disease
CPT/HCPCS: 80053; 99283